=== PATIENT | male | born 1950 | race African-American/Black ===

== ENCOUNTER → 2016-12-10 | Outpatient (CLI) | payer MEDICARE, OTHER ==
[2016-12-10 12:53] LABS: CREATININE 1.63 mg/dL (0.52-1.25)
[2016-12-10 13:13] LABS: URINE CREATININE 61.6 mg/dL (22-328)
== END ==
LOC: OD 11:16
PROVIDERS: ATTEND Internal Medicine Geriatric Medicine
DX: N18.3 Chronic kidney disease, stage 3 (moderate) (principal)
CPT/HCPCS: 82575; 84156

== ENCOUNTER → 2016-12-13 | Outpatient (CLI) | payer MEDICARE, OTHER ==
--- NOTE | 2016-12-13 08:25 | RADIOLOGY REPORT (SQ) ---
EXAM DESCRIPTION: U/S RETROPERITON (RENAL/AORTA) COMPLETED DATE/TIME: 12/13/2016 7:57 am REASON FOR STUDY: CKD III (N18.3) N18.3 CHRONIC KIDNEY DISEASE, STAGE 3 (MODERATE) COMPARISON: None. TECHNIQUE: Dynamic and static grayscale images acquired of the kidneys and bladder and recorded on P ACS. Additional selected color Doppler and spectral images recorded. LIMITATIONS: None. FINDINGS: RIGHT KIDNEY: The right kidney measures 9.5 cm in length. Echogenicity is normal. No mas ses. No hydronephrosis. LEFT KIDNEY: The left kidney measures 10.2 cm in length. There is a 2.7 x 2.2 x 2.2 cm hypoechoic s tructure most consistent with cyst. There are small echogenic foci most likely representing nonobstr ucting stones. BLADDER: No masses. OTHER FINDINGS: No other significant finding. IMPRESSION: Small left renal cyst. Probable nonobstructing small left renal calculi. TECHNICAL DOCUMENTATION: JOB ID: [id number] [employer]- All Rights Reserved
== END ==
LOC: RAD 07:28
PROVIDERS: ATTEND Internal Medicine Geriatric Medicine
DX: N18.3 Chronic kidney disease, stage 3 (moderate) (principal); N28.1 Cyst of kidney, acquired
CPT/HCPCS: 76770